=== PATIENT | female | born 1990 ===

== ENCOUNTER 2017-01-07 21:38 | Emergency (ER) | payer OTHER ==
[2017-01-07 21:44] VITALS: BP 133/92; PULSE 84; RESP 18; TEMP 98.1; O2SAT 99
--- NOTE | 2017-01-07 21:49 | ED PDOC ---
Lower Extremity Pain/Injury Time Seen by Provider: 01/07/17 21:46 Chief Complaint (Nursing): Lower Extremity Problem/Injury Chief Complaint (Provider): foot injury History Per: Patient, Family Additional Complaint(s): 26-year-old female presents to emergency Department with pain to left foot status post tripping while walking with flip-flops at 3 PM today. Patient unable to put any weight on left foot. She did not take any medicine for pain relief prior to arrival. No associated ankle pain. Patient states current pain as an 8 out of 10 and she denies any associated numbness or tingling. Past Medical History Reviewed: Historical Data, Nursing Documentation, Vital Signs Vital Signs: Last Vital Signs Temp 98.1 F 01/07/17 21:41 Pulse 84 01/07/17 21:41 Resp 18 01/07/17 21:41 BP 133/92 H 01/07/17 21:41 Pulse Ox 99 01/07/17 21:41 - Medical History PMH: No Chronic Diseases - Surgical History Surgical History: No Surg Hx - Family History Family History: States: No Known Family Hx - Living Arrangements Living Arrangements: With Family - Social History Current smoker - smoking cessation education provided: No Alcohol: None Drugs: Denies - Allergies Allergies/Adverse Reactions: Allergies Allergy/AdvReac Type Severity Reaction Status Date / Time No Known Allergies Allergy Verified 01/07/17 21:48 Review of Systems ROS Statement: Except As Marked, All Systems Reviewed And Found Negative Musculoskeletal: Positive for: Foot Pain (left foot injury) Physical Exam - Reviewed Nursing Documentation Reviewed: Yes Vital Signs Reviewed: Yes - Physical Exam Appears: Positive for: Well, Non-toxic, No Acute Distress Skin: Negative for: Rash Eye Exam: Positive for: Normal appearance Extremity: Positive for: Other (Diffuse swelling and tenderness to dorsolateral aspect of left foot, decreased range of motion of all toes, palpable DP pulse, nontender left ankle, normal distal sensation) Neurologic/Psych: Positive for: Alert, Oriented - Laboratory Results Urine POC: Negative - ECG O2 Sat by Pulse Oximetry: 99 Pulse Ox Interpretation: Normal - Other Rad Left foot x-ray X-Ray: Interpreted by Me, Viewed By Me X-Ray Interpretation: no fx, no dis Medical Decision Making Medical Decision Makin-year-old female with left foot injury Plan: test PO motrin X-ray left foot Patient aware of x-ray results. All questions answered. Crutches were provided, see procedure note. Patient referred to podiatry clinic for follow-up. Procedures - Splinting Location: left foot Pre-Made Type: martita wrap, ortho shoe Pre-Proc Neuro Vasc Exam: normal Post-Proc Neuro Vasc Exam: normal Disposition - Clinical Impression Clinical Impression: Foot sprain, Foot contusion - Patient ED Disposition Is Patient to be Admitted: No Counseled Patient/Family Regarding: Studies Performed, Diagnosis, Need For Followup - Disposition Referrals: Podiatry Clinic [Outside] Disposition: Routine/Home Disposition Time: 22:43 Condition: STABLE Additional Instructions: Ice, rest and elevate affected area. Take [id number] Tylenol or Advil for pain as needed. Follow-up with podiatry clinic for any persistent symptoms. Instructions: Foot Sprain (ED), Foot Contusion (ED), Crutch Instructions (ED) Forms: [employer] (Occitan)
--- NOTE | 2017-01-08 10:32 | RAD ---
PROCEDURE: Left Foot Radiographs. HISTORY: Trauma COMPARISON: None. FINDINGS: BONES: Bone alignment and mineralization are normal. No acute displaced fracture. JOINTS: Normal. SOFT TISSUES: Normal. OTHER FINDINGS: None. IMPRESSION: No acute fracture or dislocation.
== END 2017-01-07 23:19 | disposition home or self-care (01) ==
LOC: H.ER 21:38
DX: S99.922A Unspecified injury of left foot, initial encounter (principal); W19.XXXA Unspecified fall, initial encounter; Y92.89 Other specified places as the place of occurrence of the external cause